=== PATIENT | male | born 1995 | race Hispanic/Latino ===

== ENCOUNTER 2023-01-17 11:23 | Emergency (ER) | payer MEDICAID, OTHER ==
[~2023-01-17] VITALS: Ht 167.6 cm; Wt 86.6 kg
[2023-01-17 13:02] LABS: MEAN CORPUSCULAR HEMOGLOBIN 29.4 pg (27.0-33.0); MEAN CORPUSCULAR HGB CONC 34.1 g/dL (32.0-36.0); MEAN CORPUSCULAR VOLUME 86.1 fL (79-99); RED BLOOD CELL COUNT(AUTO) 5.34 MIL/uL (4.50-6.20); RED CELL DISTRIBUTION WIDTH 12.9 % (11.0-15.5); WHITE BLOOD COUNT (AUTO) 7.1 K/uL (4.8-10.8)
[2023-01-17 13:10] LABS: CREATININE 0.8 mg/dL (0.5-1.5); POTASSIUM 3.4 mmol/L (3.5-5.1)
[2023-01-17] MEDS ORDERED: IOHEXOL 350 MG/ML 100ML INFUS..BTL IV ONE (14:14)
[2023-01-17 15:36] VITALS: BP 124/80; PULSE 66; RESP 16; O2SAT 100
== END 2023-01-17 15:48 | disposition home or self-care (01) ==
LOC: EDH 11:23
DX: R22.2 Localized swelling, mass and lump, trunk (principal); R07.89 Other chest pain
CPT/HCPCS: 99285; 71260; 71045; 84484; 80048; 85027; 36415; 74177; 93005; Q9967